=== PATIENT | female | born 1985 | race Caucasian/White ===

== ENCOUNTER 2016-08-20 16:57 | Emergency (ER) | payer BC ==
--- NOTE | ~2016-08-20 | CR126 ---
[facility] A Service of [facility] & [facility] RADIOLOGY TEXT RESULTS PATIENT: ANILA MCCARTY LOCATION: SED : 89 UNIT #: [id number] AGE: [address]: Christophe Fontaine SEX: F ORDER DR: [id number] [address] [address] [id number] E MR#: [id number] Acc #: [id number] NAME: ANILA MCCARTY : 1985 SEX: F STUDY DATE/TIME: 08/20/2016 17:44 UNIT: SED ROOM: STUDY DESCRIPTION: CR Foot Complete Min 3 View Lt Attending Physician: Christophe Fontaine P.A.-C. Ordering Physician: Christophe Fontaine P.A.-C. Primary Care Physician: Primary Care Physician No MEDICAL IMAGING REPORT This report is preliminary unless electronic signature is present. EXAM Left foot, 08/20/2016 INDICATIONS Pain for a week in the bottom of the heel area. No known injury. TECHNIQUE 3 views left foot. No comparisons. FINDINGS The examination is negative. No acute fracture. No retained opaque foreign body. No significant degenerative change. IMPRESSION 1. Negative left foot. Dictated by... Bryon Rodriguez M.D. THIS IS AN ELECTRONICALLY VERIFIED REPORT Bryon Rodriguez M.D. at 08/21/2016 10:10 AM RADHA/dg TD: 08/20/2016 22:26 JOB #: [id number] MEDICAL IMAGING REPORT Page 1 of 1
[~2016-08-20 16:57] MED LIST: ALBUTEROL INH; AMOXICILLIN PO; IBUPROFEN800 MG PO
[2016-08-20] MEDS ORDERED: NO MEDICATIONS (17:22)
== END 2016-08-20 18:43 | disposition home or self-care (01) ==
LOC: SED 16:57
DX: M72.2 Plantar fascial fibromatosis (principal)
CPT/HCPCS: 73630; 99283